=== PATIENT | female | born 1985 | race Caucasian/White ===

== ENCOUNTER 2016-08-30 00:28 | Emergency (ER) | payer MEDICAID ==
[~2016-08-30] VITALS: Ht 152.4 cm; Wt 78.5 kg
[2016-08-30 01:08] VITALS: BP 122/72; PULSE 89; RESP 18; TEMP 98.2; O2SAT 98
[2016-08-30] MEDS ORDERED: LIDOCAINE 4% TOPICAL 50 ML BOTTLE MM ONE (02:00)
[2016-08-30] MEDS ORDERED: BACITRACIN 1 GM OINT TP ONE (02:00)
[2016-08-30] MEDS ORDERED: ACETAMINOPHEN/CODEINE 300 MG-30 MG TABLET PO ONE (02:45)
[2016-08-30 03:03] VITALS: BP 122/72; PULSE 89; RESP 18; TEMP 98.2; O2SAT 98
== END 2016-08-30 03:03 | disposition home or self-care (01) ==
LOC: SED 00:28
DX: S92.502A Displaced unspecified fracture of left lesser toe(s), initial encounter for closed fracture (principal); W20.8XXA Other cause of strike by thrown, projected or falling object, initial encounter; Y93.89 Activity, other specified; Y92.89 Other specified places as the place of occurrence of the external cause; Y99.8 Other external cause status
CPT/HCPCS: 99284

== ENCOUNTER 2018-02-22 00:23 | Emergency (ER) | payer MEDICAID ==
[~2018-02-22] VITALS: Ht 160 cm; Wt 81.2 kg
[2018-02-22 00:40] VITALS: BP_SYST 118
--- NOTE | 2018-02-22 00:52 | NUR ---
Placed in room 02 . 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 To gown for exam. Side rails up. Report given to KINZA Reynolds.
[2018-02-22] MEDS ORDERED: NACL 0.9% 1,000 ML IV ONE (01:02)
--- NOTE | 2018-02-22 01:05 | NUR ---
ER at bedside examining patient.
[2018-02-22] MEDS ORDERED: ONDANSETRON HCL 4 MG/2 ML VIAL IVP ONE (01:15)
[2018-02-22] MEDS ORDERED: MORPHINE 4 MG/ML INJ. SYRINGE IVP ONE ×2 (01:15→02:30)
[2018-02-22 01:35] LABS: CALCIUM 9.1 mg/dL (8.4-11.0); CREATININE 0.53 mg/dL (0.55-1.30); POTASSIUM 3.9 mmol/L (3.5-5.1)
[2018-02-22 01:37] LABS: BASOPHILS % (AUTO) 0.5 % (0.0-2.0); EOSINOPHILS # (AUTO) 0.1 K/uL (0.0-0.4); EOSINOPHILS % (AUTO) 1.6 % (0.0-4.0); HEMATOCRIT 31.4 % (36-48); HEMOGLOBIN 10.3 g/dL (12.0-16.0); LYMPHOCYTES # (AUTO) 2.9 K/uL (1.0-5.5); LYMPHOCYTES % (AUTO) 43.4 % (20.5-51.5); MEAN CORPUSCULAR HEMOGLOBIN 23 pg (27-31); MEAN CORPUSCULAR HGB CONC 33 % (32-36); MEAN CORPUSCULAR VOLUME 69 fL (79.0-98.0); MONOCYTES # (AUTO) 0.6 K/uL (0.0-1.0); MONOCYTES % (AUTO) 9.9 % (1.7-9.3); NEUTROPHILS # (AUTO) 2.8 K/uL (1.8-7.7); NEUTROPHILS % (AUTO) 44.6 % (40.0-70.0); PLATELET COUNT (AUTO) 242 K/uL (130-430); PROTHROMBIN TIME 10.5 SECS (9.5-12.5); RED BLOOD CELL COUNT(AUTO) 4.58 MIL/uL (4.2-6.2); RED CELL DISTRIBUTION WIDTH 14.2 % (9.0-15.0); WHITE BLOOD COUNT (AUTO) 6.4 K/uL (4.8-10.8)
[2018-02-22 01:41] LABS: ALBUMIN 3.7 g/dL (3.4-4.8); TOTAL BILIRUBIN 0.8 mg/dL (0.0-1.0)
--- NOTE | 2018-02-22 02:00 | NUR ---
PT compalined of right quadrat sharp pain. Pt stated felt nausea at home. Pt also stated was at ER few days ago. And a follow up was recommended for gallstones.
--- NOTE | 2018-02-22 02:56 | NUR ---
Dr. mcleod explained to the pt reagrding need to follow up with the MD. Pt verbalized understanding.
[2018-02-22 02:59] LABS: BILIRUBIN,URINE NEGATIVE (NEGATIVE); BLOOD, URINE NEGATIVE (NEGATIVE); COLOR,URINE YELLOW (YELLOW); GLUCOSE,URINE NEGATIVE (NEGATIVE); KETONES,URINE NEGATIVE (NEGATIVE); LEUKOCYTE ESTERASE ,URINE NEGATIVE (NEGATIVE); NITRITE, URINE NEGATIVE (NEGATIVE); PROTEIN URINE NEGATIVE (NEGATIVE)
[2018-02-22 03:01] LABS: CLARITY/URINE SLIGHTLY HAZY (CLEAR)
[2018-02-22 03:45] VITALS: BP_SYST 120
--- NOTE | 2018-02-22 03:45 | NUR ---
Patient given written and verbal discharge instructions and verbalizes understanding. ER MD discussed with patient the results and treatment provided. Patient in stable condition. ID arm band removed. IV catheter removed intact and dressing applied, no active bleeding. Rx of tylenol 3 and zofran given. Patient educated on pain management and to follow up with PMD. Pain Scale 0/10. Opportunity for questions provided and answered. Medication side effect fact sheet provided.
== END 2018-02-22 03:45 | disposition home or self-care (01) ==
LOC: SED 00:23
DX: K80.20 Calculus of gallbladder without cholecystitis without obstruction (principal)
CPT/HCPCS: 36415; 71045; 80053; 81003; 82150; 82550; 83690; 85025; 85610; 85730; 96361; 96374; 96375; 99285; J2270; J2405; J7030

== ENCOUNTER 2018-09-03 10:28 | Emergency (ER) | payer MEDICAID ==
[~2018-09-03] VITALS: Ht 152.4 cm; Wt 79.4 kg
[2018-09-03 10:31] VITALS: BP_SYST 119
--- NOTE | 2018-09-03 10:40 | NUR ---
Patient to ER bed 6 to gown for evaluation. Side rails up.
--- NOTE | 2018-09-03 10:45 | NUR ---
Pt c/o GERD and SOB. Pt VSS 100% ,no acute resp distress noted. Pt h/o anxiety.
[2018-09-03] MEDS ORDERED: BELLADONNA ALKALOIDS/PHENOBARB 5 ML UDC PO ONE (11:00)
[2018-09-03] MEDS ORDERED: LIDOCAINE VISCOUS 2%, 15 ML UDC MM ONE (11:00)
[2018-09-03] MEDS ORDERED: MAG-AL HYDROX/SIMETH 30 ML UDC PO ONE (11:00)
--- NOTE | 2018-09-03 11:30 | NUR ---
ER at bedside examining patient.
--- NOTE | 2018-09-03 12:00 | NUR ---
Pt had some relief from medication.
[2018-09-03 13:09] VITALS: BP_SYST 120
--- NOTE | 2018-09-03 13:09 | NUR ---
Patient given written and verbal discharge instructions and verbalizes understanding. ER MD discussed with patient the results and treatment provided. Patient in stable condition. ID arm band removed. Rx of Mylanta given. Patient educated on pain management and to follow up with PMD. Pain Scale 0. Opportunity for questions provided and answered. Medication side effect fact sheet provided.
== END 2018-09-03 13:09 | disposition home or self-care (01) ==
LOC: SED 10:28
DX: R10.13 Epigastric pain (principal); K21.9 Gastro-esophageal reflux disease without esophagitis; Z86.19 Personal history of other infectious and parasitic diseases; Z90.49 Acquired absence of other specified parts of digestive tract
CPT/HCPCS: 71045; 93005; 99283; J2001

== ENCOUNTER 2018-09-26 20:45 | Emergency (ER) | payer MEDICAID ==
[~2018-09-26] VITALS: Ht 152.4 cm; Wt 79.4 kg
[2018-09-26 20:59] VITALS: BP_SYST 119
[2018-09-26 22:20] VITALS: BP_SYST 119
== END 2018-09-26 22:18 | disposition home or self-care (01) ==
LOC: SED 20:45
DX: J02.8 Acute pharyngitis due to other specified organisms (principal); B97.89 Other viral agents as the cause of diseases classified elsewhere; H57.89 Other specified disorders of eye and adnexa; Z90.49 Acquired absence of other specified parts of digestive tract
CPT/HCPCS: 70360-TC; 99283

== ENCOUNTER 2021-09-07 18:03 | Emergency (ER) | payer MEDICAID ==
[~2021-09-07] VITALS: Ht 160 cm; Wt 81.6 kg
[2021-09-07 18:20] VITALS: BP_SYST 114
[2021-09-07] MEDS ORDERED: NACL 0.9% 1,000 ML IV ONE (19:30)
[2021-09-07 19:36] LABS: BILIRUBIN,URINE NEGATIVE (NEGATIVE); BLOOD, URINE 1+ (NEGATIVE); COLOR,URINE YELLOW (YELLOW); GLUCOSE,URINE NEGATIVE (NEGATIVE); KETONES,URINE NEGATIVE (NEGATIVE); LEUKOCYTE ESTERASE ,URINE 1+ (NEGATIVE); NITRITE, URINE NEGATIVE (NEGATIVE); PROTEIN URINE NEGATIVE (NEGATIVE); UROBILINOGEN,URINE 0.2 (0.2-1.0)
[2021-09-07 19:37] LABS: CLARITY/URINE HAZY (CLEAR)
[2021-09-07 19:45] LABS: MEAN CORPUSCULAR HGB CONC 32 % (32-36)
[2021-09-07 19:46] LABS: BACTERIA,URINE MODERATE /HPF (None Seen); MUCUS,URINE 1+ /LPF (None Seen); RBC,URINE 0-3 /HPF (0-3)
[2021-09-07 20:01] LABS: CALCIUM 9.1 mg/dL (8.4-11.0); CREATININE 0.61 mg/dL (0.55-1.30); POTASSIUM 3.8 mmol/L (3.5-5.1)
[2021-09-07 20:07] LABS: ALBUMIN 3.8 g/dL (3.4-4.8); TOTAL BILIRUBIN 0.5 mg/dL (0.0-1.0)
[2021-09-07] MEDS ORDERED: ACETAMINOPHEN 325 MG TABLET PO ONE (20:15)
[2021-09-07 20:25] LABS: HEMATOCRIT 39.4 % (36-48); HEMOGLOBIN 12.6 g/dL (12.0-16.0); MEAN CORPUSCULAR HEMOGLOBIN 22 pg (27-31); MEAN CORPUSCULAR VOLUME 70 fL (79.0-98.0); PLATELET COUNT (AUTO) 250 K/uL (130-430); RED BLOOD CELL COUNT(AUTO) 5.65 MIL/uL (4.2-6.2); RED CELL DISTRIBUTION WIDTH 15.4 % (9.0-15.0); WHITE BLOOD COUNT (AUTO) 7.1 K/uL (4.8-10.8)
[2021-09-07 21:06] LABS: BASOPHILS # (AUTO) 0.1 K/uL (0.0-0.2); BASOPHILS % (AUTO) 0.7 % (0.0-2.0); EOSINOPHILS # (AUTO) 0.1 K/uL (0.0-0.4); EOSINOPHILS % (AUTO) 1.6 % (0.0-4.0); LYMPHOCYTES # (AUTO) 2.3 K/uL (1.0-5.5); LYMPHOCYTES % (AUTO) 31.5 % (20.5-51.5); MONOCYTES # (AUTO) 0.6 K/uL (0.0-1.0); MONOCYTES % (AUTO) 7.6 % (1.7-9.3); NEUTROPHILS # (AUTO) 4.3 K/uL (1.8-7.7); NEUTROPHILS % (AUTO) 58.6 % (40.0-70.0)
[2021-09-07 22:29] VITALS: BP_SYST 121
== END 2021-09-07 22:29 | disposition home or self-care (01) ==
LOC: SED 18:03
DX: R55 Syncope and collapse (principal)
CPT/HCPCS: 36415; 80053; 81000; 81025; 85025; 87086; 93005; 99284

== ENCOUNTER 2021-09-11 20:39 | Inpatient (IN) | payer MEDICAID, SELFPAY ==
[~2021-09-11] VITALS: Ht 172.7 cm; Wt 90.7 kg
[2021-09-11 21:00] VITALS: BP_SYST 126
--- NOTE | 2021-09-11 22:01 | NUR ---
PT BIBA FROM HOME FOR GENERALIZED WEAKNESS X 1 DAY, REPORTS MILD HEADACHE AND FEELING NERVOUS, RECENT FAMILY ARGUMENTS. RESP EVEN AND UNLABORED, ON RA @99%. REPORTS SHE WAS HERE SEVERAL DAYS AGO FOR SAME ISSUE AND WAS TOLD SHE HAS ANXIETY. PT DENIES ANY SI/HI.
--- NOTE | 2021-09-11 22:33 | NUR ---
DR DHALIWAL IN ROOM FOR EXAM.
--- NOTE | 2021-09-11 23:09 | NUR ---
PT TO US
[2021-09-11 23:49] LABS: BASOPHILS % (AUTO) 0.4 % (0.0-2.0); EOSINOPHILS # (AUTO) 0.1 K/uL (0.0-0.4); EOSINOPHILS % (AUTO) 1.6 % (0.0-4.0); HEMATOCRIT 35.9 % (36-48); HEMOGLOBIN 11.7 g/dL (12.0-16.0); LYMPHOCYTES # (AUTO) 2.4 K/uL (1.0-5.5); LYMPHOCYTES % (AUTO) 31.6 % (20.5-51.5); MEAN CORPUSCULAR HEMOGLOBIN 23 pg (27-31); MEAN CORPUSCULAR HGB CONC 33 % (32-36); MEAN CORPUSCULAR VOLUME 69 fL (79.0-98.0); MONOCYTES # (AUTO) 0.6 K/uL (0.0-1.0); MONOCYTES % (AUTO) 7.6 % (1.7-9.3); NEUTROPHILS # (AUTO) 4.4 K/uL (1.8-7.7); NEUTROPHILS % (AUTO) 58.8 % (40.0-70.0); PLATELET COUNT (AUTO) 212 K/uL (130-430); RED CELL DISTRIBUTION WIDTH 15.3 % (9.0-15.0); WHITE BLOOD COUNT (AUTO) 7.5 K/uL (4.8-10.8)
[2021-09-12] VITALS (8 sets, daily range): BP systolic 100–136
[2021-09-12 00:06] LABS: ANION GAP 8 (5-15); CALCIUM 8.7 mg/dL (8.4-11.0); CHLORIDE 104 mmol/L (98-107); CREATININE 0.62 mg/dL (0.55-1.30); GLUCOSE 93 mg/dL (70-99); POTASSIUM 3.5 mmol/L (3.5-5.1); SODIUM SERUM 138 mmol/L (136-145); UREA NITROGEN, BLOOD 18 mg/dL (8-21)
[2021-09-12 00:16] LABS: ALANINE AMINOTRANSFERASE 13 U/L (12-78); ALBUMIN 3.6 g/dL (3.4-4.8); ASPARTATE AMINOTRANSFERASE < 5 U/L (10-37); FREE T4 (FREE THYROXINE) 0.9 ng/dl (0.8-1.5); TOTAL BILIRUBIN 0.5 mg/dL (0.0-1.0)
[2021-09-12 00:45] LABS: BILIRUBIN,URINE NEGATIVE (NEGATIVE); BLOOD, URINE NEGATIVE (NEGATIVE); CLARITY/URINE CLEAR (CLEAR); COLOR,URINE YELLOW (YELLOW); GLUCOSE,URINE NEGATIVE (NEGATIVE); KETONES,URINE NEGATIVE (NEGATIVE); LEUKOCYTE ESTERASE ,URINE NEGATIVE (NEGATIVE); NITRITE, URINE NEGATIVE (NEGATIVE); PROTEIN URINE NEGATIVE (NEGATIVE)
[2021-09-12 00:52] LABS: BARBITURATE, URINE NEGATIVE (NEG <=200); BENZODIAZEPINE, URINE NEGATIVE (NEG <=150); CANNABINOID, URINE NEGATIVE (NEG <=50); COCAINE, URINE NEGATIVE (NEG <=150); METHAMPHETAMINES SCREEN,URINE NEGATIVE (NEG <=500); OPIATE, URINE NEGATIVE (NEG <=100); PHENCYCLIDINE SCREEN,URINE NEGATIVE (NEG <=25); UR TRICYCLIC ANTIDEPRESSANTS NEGATIVE (NEG <=300); URINE AMPHETAMINE NEGATIVE (NEG <=500); URINE METHADONE NEGATIVE (NEG <=200); URINE OXYCODONE SCREEN NEGATIVE (NEG <=100); URINE PROPOXYPHENE SCREEN NEGATIVE (NEG <=300)
[2021-09-12 00:54] LABS: HCG,QUANTITATIVE 0 mIU/ML (0-6); THYROID STIMULATING HORMONE 3.64 uIu/mL (0.36-3.74)
[2021-09-12 00:55] LABS: GFR AFRICAN AMERICAN 142 mL/min (>90)
[2021-09-12] MEDS ORDERED: MORPHINE 4 MG INJ. 4 MG/ML VIAL IVP ONE (01:45)
--- NOTE | 2021-09-12 02:08 | NUR ---
PT C/O HEADACHE 10/10, MEDICATED ORDERED. FATER AT BEDSIDE, WILL COT TO MONITOR.
[2021-09-12] MEDS ORDERED: FAMOTIDINE 20 MG TABLET PO ONE (02:30)
--- NOTE | 2021-09-12 02:30 | NUR ---
PT C/O EPIGASTRIC PAIN AFTER GIVING MORPHINE. DR DHALIWAL INFORMED. PT MOANING IN PAIN.
--- NOTE | 2021-09-12 02:33 | NUR ---
ADMITTING ORDERS RECEVED FROM BARBI BAKER TO TELE-OBS- DR BRYAN.
[2021-09-12] MEDS ORDERED: LORazepam 2 MG/ML VIAL IVP PRN (03:00)
[2021-09-12] MEDS ORDERED: ONDANSETRON HCL 4 MG/2 ML VIAL IVP PRN (03:00)
[2021-09-12] MEDS ORDERED: ACETAMINOPHEN 325 MG TABLET PO PRN ×2 (03:00→06:30)
--- NOTE | 2021-09-12 04:14 | NUR ---
ADMISSION BED RECEIVED, PT STABLE FOR TRANSFER.
--- NOTE | 2021-09-12 04:30 | NUR ---
ADMIT NOTE Received pt from ER to the floor with a diagnosis of SYNCOPE. Admission process initiated. patient oriented to pain management, safety and call light-teach back done.
--- NOTE | 2021-09-12 04:34 | NUR ---
Patient will be admitted to care of DR BRYAN. Admitted to unit. Will go to room . Belongings list completed. Complete and up to date summary report printed. SBAR report to be given at bedside with opportunity for questions.
--- NOTE | 2021-09-12 05:00 | NUR ---
Initial RN notes Pt AAOx4, VSS, no c/o pain at this time. IV saline locked R. AC 20G good blood return. Pt assisted to the bathroom, a little unsteady, pt voided. Instructed pt to use the call button for assistance to bathroom, pt verbalized understanding. Call light within reach. Bed low, locked siderails up x2, bed alarm on. at bedside. To monitor.
--- NOTE | 2021-09-12 05:03 | NUR ---
CONSULTATION PAGED REASON FOR CONSULTATION: syncope WAS CONSULT CALLED?Y PERSON WHO WAS NOTIFIED: Dr. Newberry text message CONSULTING PHYSICIAN: Yovani Fong REQUESTING PHYSICIAN: Keith Santoro
[2021-09-12] MEDS: NORMAL SALINE 5 ML DISP.SYRIN IVF SCH ×3 (05:47→22:10)
[2021-09-12] MEDS ORDERED: NORMAL SALINE 5 ML DISP.SYRIN IVF SCH (06:00)
[2021-09-12] MEDS ORDERED: NALOXONE HCL 0.4 MG/ML AMP (NARCAN) IVP PRN (06:30)
[2021-09-12] MEDS ORDERED: HYDROcodone/ACETAMIN 5-325 MG TAB (NORCO/ VICODIN) PO PRN (06:30)
[2021-09-12] MEDS ORDERED: ALBUTEROL SULFATE 0.083% 2.5 MG/3 ML VIAL.NEB INH PRN (06:30)
[2021-09-12 06:38] LABS: CALCIUM 8.4 mg/dL (8.4-11.0); CREATININE 0.55 mg/dL (0.55-1.30); POTASSIUM 3.5 mmol/L (3.5-5.1)
[2021-09-12 07:08] LABS: BASOPHILS % (AUTO) 0.3 % (0.0-2.0); EOSINOPHILS # (AUTO) 0.1 K/uL (0.0-0.4); EOSINOPHILS % (AUTO) 1.4 % (0.0-4.0); HEMATOCRIT 34.8 % (36-48); HEMOGLOBIN 11.1 g/dL (12.0-16.0); LYMPHOCYTES # (AUTO) 2.2 K/uL (1.0-5.5); LYMPHOCYTES % (AUTO) 29.7 % (20.5-51.5); MEAN CORPUSCULAR HEMOGLOBIN 22 pg (27-31); MEAN CORPUSCULAR HGB CONC 32 % (32-36); MEAN CORPUSCULAR VOLUME 70 fL (79.0-98.0); MONOCYTES # (AUTO) 0.6 K/uL (0.0-1.0); MONOCYTES % (AUTO) 7.9 % (1.7-9.3); NEUTROPHILS # (AUTO) 4.5 K/uL (1.8-7.7); NEUTROPHILS % (AUTO) 60.7 % (40.0-70.0); PLATELET COUNT (AUTO) 200 K/uL (130-430); WHITE BLOOD COUNT (AUTO) 7.3 K/uL (4.8-10.8)
[2021-09-12] MEDS ORDERED: LORazepam 2 MG/ML VIAL IVP ONE (17:15)
--- NOTE | 2021-09-12 19:20 | NUR ---
OPENING NOTES ENDORSE CARE FROM DAY SHIFT. PT IS RESTING IN BED WITH LIGHTS OFF, BEDSIDE. NO COMPLAINTS OF PAIN AT THIS TIME. NO APPARENT DISTRESS NOTED. BED IN LOWEST POSITION WITH CALL LIGHT WITHIN REACH
[2021-09-13] VITALS: BP_SYST 107
[2021-09-13] MEDS ORDERED: SERT100T PO (00:02)
[2021-09-13] MEDS ORDERED: TOP25 PO (00:02)
[2021-09-13] MEDS ORDERED: TRAZ-251 PO (00:02)
[2021-09-13] MEDS: LORazepam 2 MG/ML VIAL IVP PRN (00:48)
[2021-09-13] MEDS: NORMAL SALINE 5 ML DISP.SYRIN IVF SCH ×3 (06:00→22:00)
--- NOTE | 2021-09-13 07:20 | NUR ---
CLOSING NOTES ENDORSE CARE TO DAY SHIFT. PT IS SLEEPING IN BED WITH LIGHTS OFF. NO APPARENT DISTRESS NOTED. BED IN LOWEST POSITION WITH CALL LIGHT WITHIN REACH
[2021-09-13 08:00] VITALS: BP_SYST 118
[2021-09-13 08:39] LABS: ALBUMIN 3.5 g/dL (3.4-4.8); CALCIUM 9.1 mg/dL (8.4-11.0); CREATININE 0.5 mg/dL (0.55-1.30); POTASSIUM 4.2 mmol/L (3.5-5.1); TOTAL BILIRUBIN 0.6 mg/dL (0.0-1.0)
[2021-09-13 08:56] LABS: BASOPHILS % (AUTO) 0.6 % (0.0-2.0); EOSINOPHILS # (AUTO) 0.1 K/uL (0.0-0.4); EOSINOPHILS % (AUTO) 2.1 % (0.0-4.0); HEMATOCRIT 37.8 % (36-48); HEMOGLOBIN 12.1 g/dL (12.0-16.0); LYMPHOCYTES # (AUTO) 2.5 K/uL (1.0-5.5); LYMPHOCYTES % (AUTO) 37.2 % (20.5-51.5); MEAN CORPUSCULAR HEMOGLOBIN 22 pg (27-31); MEAN CORPUSCULAR HGB CONC 32 % (32-36); MEAN CORPUSCULAR VOLUME 70 fL (79.0-98.0); MONOCYTES # (AUTO) 0.6 K/uL (0.0-1.0); MONOCYTES % (AUTO) 9.2 % (1.7-9.3); NEUTROPHILS # (AUTO) 3.4 K/uL (1.8-7.7); NEUTROPHILS % (AUTO) 50.9 % (40.0-70.0); PLATELET COUNT (AUTO) 232 K/uL (130-430); RED BLOOD CELL COUNT(AUTO) 5.41 MIL/uL (4.2-6.2); RED CELL DISTRIBUTION WIDTH 14.9 % (9.0-15.0); WHITE BLOOD COUNT (AUTO) 6.6 K/uL (4.8-10.8)
--- NOTE | 2021-09-13 10:44 | NUR ---
CONSULT: CARDIOLOGY SYNCOPE PRISCA TERRELL [phone] S/W EDITH
[2021-09-13 11:21] VITALS: BP_SYST 128
--- NOTE | 2021-09-13 12:30 | NUR ---
1210 - CALLED BY LAZARA GALVEZ TO CHECK PT. PT NAY WAS AT BED SIDE. PT STATED HE WAS CHECKING HER STRENGTH ON PT AND PT BECAME UNRESPONSIVE FOR FEW SECONDS PER PT. WHEN THIS RN ENTERED PT WAS LYING IN BED EYES OPEN . TALKING. DENIES ANY PAIN . ABLE TO MOVE ALL EXTREMITIES. DENIES ANY SOB.CHEST PAIN. PT AND AT BED SIDE. PER PT HAD THIS TYPE OF EPISODES AT HOME ALSO.. BP124/74,HR 86 O2 SATURATION 99% ON RA. LYING DOWN . SITTING UP 112/78, HR 92. O2 SAT 99%.. PRIMARY NURSE GLORIA WRIGHT. 1230- CALLED DR BRYAN AND NOTIFIED ABOUT THE EVENT.
[2021-09-13 15:08] VITALS: BP_SYST 103
[2021-09-13] MEDS ORDERED: POLYETHYLENE GLYCOL 3350, 17 GM/ POWD.PACK PO ONE (18:30)
--- NOTE | 2021-09-13 19:15 | NUR ---
OPENING NOTES ENDORSE CARE FROM DAY SHIFT. PT IS RESTING IN BED WITH BEDSIDE. NO COMPLAINTS OF PAIN AT THIS TIME. NO APPARENT DISTRESS NOTED. BED IN LOWEST POSITION WITH CALL LIGHT WITHIN REACH
[2021-09-13 20:00] VITALS: BP_SYST 125
[2021-09-14] VITALS: BP_SYST 116
[2021-09-14] MEDS: LORazepam 2 MG/ML VIAL IVP PRN ×3 (00:19→08:05)
[2021-09-14 03:00] VITALS: BP_SYST 126
[2021-09-14] MEDS: NORMAL SALINE 5 ML DISP.SYRIN IVF SCH (06:36)
[2021-09-14 07:45] VITALS: BP_SYST 142
--- NOTE | 2021-09-14 08:19 | NUR ---
CONSULTATION PAGED REASON FOR CONSULTATION:anxiety WAS CONSULT CALLED?Y PERSON WHO WAS NOTIFIED:ELINA CONSULTING PHYSICIAN:LUDWIG SANCHEZ [employer] SPECIALTY:[employer] PHONE NUMBER:[phone] REQUESTING PHYSICIAN:PRISCA BAJWA
[2021-09-14] MEDS ORDERED: POLYETHYLENE GLYCOL 3350, 17 GM/ POWD.PACK PO SCH (09:00)
[2021-09-14 11:23] VITALS: BP_SYST 134
[2021-09-14 12:00] VITALS: BP_SYST 127
--- NOTE | 2021-09-14 12:46 | NUR ---
Patient was seen for gait assessment. She was able to ambulate 45 ft. with the FWW, Stand by assist. Attempts to ambulate without the FWW indicates a shuffling, unsteady gait pattern. Recommend FWW for home use. Her spouse was present. Patient reports generalized weakness.
[2021-09-14 14:07] VITALS: BP_SYST 125
== END 2021-09-14 15:10 | disposition home or self-care (01) | DRG 204 ==
LOC: SED 20:39 → INTOOBSV 09-12 02:34 → STU 09-12 02:34 → OBSVTOIN 09-14 10:00
PROVIDERS: ADMIT Internal Medicine Hospice and Palliative Medicine; ATTEND Internal Medicine Hospice and Palliative Medicine
DX: R55 Syncope and collapse (principal); F33.1 Major depressive disorder, recurrent, moderate; D64.9 Anemia, unspecified; Z20.822 Contact with and (suspected) exposure to COVID-19; R42 Dizziness and giddiness; F41.9 Anxiety disorder, unspecified; Z79.899 Other long term (current) drug therapy
CPT/HCPCS: 36415; 70450-TC; 70551; 71045; 76376; 80048; 80053; 80307; 81003; 83605; 83880; 84439; 84443; 84484; 84702; 85025; 85379; 93005; 93306; 93880; 95816; 96374; 96375; 97116-GP; 97530-GP; 99285; G0378; J2060; J2270